=== PATIENT | male | born 1995 ===

== ENCOUNTER → 2018-08-26 | Emergency (ER) | payer OTHER ==
[~2018-08-26] VITALS: Ht 180.3 cm; Wt 70.3 kg
[~2018-08-26] MED LIST: AMOX1TAB12 PO; FLONASE16 G1 NS; MUCINEX600 MG PO
== END | disposition home or self-care (01) ==
LOC: ER 18:51 → EMR PED 18:51 → ER 19:35
DX: S01.82XA Laceration with foreign body of other part of head, initial encounter (principal); W21.89XA Striking against or struck by other sports equipment, initial encounter; Y93.89 Activity, other specified; Y92.89 Other specified places as the place of occurrence of the external cause; Y99.8 Other external cause status